=== PATIENT | male | born 1995 | race American Indian/Alaskan Native ===

== ENCOUNTER 2019-12-10 23:20 | Emergency (ER) | payer OTHER ==
[~2019-12-10] VITALS: Ht 185.4 cm; Wt 108.9 kg
--- NOTE | 2019-12-11 18:50 | EKG ---
[facility] [address] [facility] [place], [place] [address] Signed Normal sinus rhythm RSR' or QR pattern in V1 suggests right ventricular conduction delay Borderline ECG No previous ECGs available Confirmed by GENESIS GASCA DO ([id number]) on 12/11/2019 6:50:23 PM Electronically Signed By: GENESIS GASCA DO 12/11/19 1850 PATIENT NAME: HEIKE GRIFFIN Electrocardiogram DATE OF : 89 PHYSICIAN: GENESIS GASCA DO REPORT #: [id number] REPORT IS CONFIDENTIAL AND NOT TO BE RELEASED WITHOUT AUTHORIZATION
== END 2019-12-11 01:34 | disposition home or self-care (01) ==
LOC: ED 23:20
DX: R07.9 Chest pain, unspecified (principal); Z88.1 Allergy status to other antibiotic agents
CPT/HCPCS: 71045; 93005; 93010; 99285-25

== ENCOUNTER 2019-12-26 01:46 | Emergency (ER) | payer OTHER ==
[~2019-12-26] VITALS: Ht 185.4 cm; Wt 108.9 kg
--- OUTSIDE RECORDS SUMMARY | 2019-12-26 01:48 | XMS ---
PreManage Notification: HEIKE GRIFFIN Security Private Duty Nurse Events No recent Security Events currently on file CRITERIA MET - [facility] - 2 Visits in 30 Days CARE PROVIDERS [facility] Primary Care [facility] PHONE: Unknown PCP Primary Care Current PHONE: Unknown Ashlee has no Care Guidelines for this patient. [facility] VISIT COUNT (12 MO.) [address] [place] [address] TOTAL 2 NOTE: Visits indicate total known visits. ED/UCC VISIT TRACKING (12 MO.) 12/26/2019 01:46 [facility] TYPE: Emergency COMPLAINT: - SOB,RAPID HEART RATE 12/10/2019 23:21 [facility] TYPE: Emergency COMPLAINT: - CHEST CONGESTION,LIGHTHEADED DIAGNOSES: - Chest pain, unspecified - Allergy status to other antibiotic agents status - Pleurodynia INPATIENT VISIT TRACKING (12 MO.) No inpatient visits to display in this time frame [email or web address]
--- NOTE | 2019-12-26 11:14 | EKG ---
[facility] [address] [facility] [place], [place] [address] Signed Sinus rhythm with fusion complexes Ipfdj-Vxmrmfxqg-Mfbme Abnormal ECG When compared with ECG of 10-DEC-2019 23:34, fusion complexes are now present Qmsmz-Bjvhvxzfs-Tsyuc is now present Confirmed by GENESIS GASCA DO ([id number]) on 12/26/2019 11:14:09 AM Electronically Signed By: GENESIS GASCA DO 12/26/19 1114 PATIENT NAME: HEIKE GRIFFIN Electrocardiogram DATE OF : [birth year] PHYSICIAN: GENESIS GASCA DO REPORT #: [id number] REPORT IS CONFIDENTIAL AND NOT TO BE RELEASED WITHOUT AUTHORIZATION
== END 2019-12-26 03:30 | disposition home or self-care (01) ==
LOC: ED 01:46
DX: R00.2 Palpitations (principal); Z88.1 Allergy status to other antibiotic agents
CPT/HCPCS: 71045; 71046; 93005; 93010; 99285-25